=== PATIENT | male | born 1960 | race Caucasian/White ===

== ENCOUNTER 2016-08-26 18:36 | Emergency (ER) | payer SELFPAY ==
[2016-05-08 18:11] VITALS: BP 156/106
[~2016-08-26 18:36] MED LIST: FERR324T6; NOVOLIN INSULIN
== END 2016-08-26 20:56 | disposition left against medical advice (07) ==
LOC: ER 18:37
DX: R04.0 Epistaxis (principal); R06.02 Shortness of breath; R51 Headache; Z53.21 Procedure and treatment not carried out due to patient leaving prior to being seen by health care provider

== ENCOUNTER 2017-01-19 08:31 | Emergency (ER) | payer SELFPAY ==
[~2017-01-19] VITALS: Ht 152.4 cm; Wt 58.0 kg
[2017-01-19 11:22] VITALS: BP 148/62
== END 2017-01-19 11:52 | disposition home or self-care (01) ==
LOC: ER 09:28
DX: H66.93 Otitis media, unspecified, bilateral (principal); E11.9 Type 2 diabetes mellitus without complications
CPT/HCPCS: 99283; X7700; Z7610